=== PATIENT | female | born 1980 | race Caucasian/White ===

== ENCOUNTER 2017-07-26 20:49 | Emergency (ER) | payer SELFPAY ==
[2017-07-26] MEDS ORDERED: diphenhydrAMINE 50 MG/ML VIAL ONE (21:30)
[2017-07-26] MEDS ORDERED: Acetaminophen 500 MG TAB ONE (21:30)
[2017-07-26] MEDS ORDERED: Ketorolac Tromethamine 30 MG/ML VIAL ONE (21:30)
[2017-07-26] MEDS ORDERED: Metoclopramide HCl 10 MG/2 ML VIAL ONE (21:30)
== END 2017-07-26 22:52 | disposition home or self-care (01) ==
LOC: ERS 20:49
DX: G43.909 Migraine, unspecified, not intractable, without status migrainosus (principal); J11.1 Influenza due to unidentified influenza virus with other respiratory manifestations; F31.9 Bipolar disorder, unspecified; F41.9 Anxiety disorder, unspecified; F17.210 Nicotine dependence, cigarettes, uncomplicated
CPT/HCPCS: 96365; 96375; J1200; J1885; J2765

== ENCOUNTER 2017-12-16 17:59 | Emergency (ER) | payer SELFPAY ==
[~2017-12-16 17:59] MED LIST: ISOVUE-370 76%-LOCM 1 ML ONE
[2017-12-16 19:05] LABS: #Eosinphils 0.3 thou/uL (0.0-0.7); #Lymphocytes 2.2 thou/uL (1.20-3.40); #Monocytes 0.7 thou/uL (0.11-0.59); #Neutrophils 2.8 thou/uL (1.40-6.50); %Basophils 0.4 % (0.0-1.0); %Eosinophils 4.5 % (0.0-10.0); %Lymphocytes 36.5 % (21.0-51.0); %Monocytes 12.1 % (0.0-10.0); %Neutrophils 46.5 % (42.0-75.0); Hemoglobin 9.9 g/dL (12.0-16.0); Mean Corpuscular Hemoglobin 23.6 pg (27.0-31.0); Mean Corpuscular Volume 76.2 fl (81.0-99.0); Mean Platelet Volume 6.8 fL (7.4-10.4); Platelet Count 330 thou/uL (130-400); RBC Distribution Width 16.1 % (11.5-14.5); Red Blood Cell (RBC) Count 4.18 mill/uL (4.20-5.40); White Blood Cell (WBC) Count 5.9 thou/uL (4.8-10.8)
[2017-12-16 19:13] LABS: BHCG - Serum Negative (NEGATIVE); Pregs Control Background? CLEAR/WHITE (CLR/WHITE); Pregs Control Bar Appear? YES (CONTROL BAR)
[2017-12-16 19:29] LABS: ALT (SGPT) 19 U/L (8-55); AST (SGOT) 17 U/L (5-34); Albumin 3.3 g/dL (3.5-5.0); Alkaline Phosphatase 88 U/L (40-150); Anion Gap 9 mmol/L (10-20); BUN (Urea Nitrogen) 7 mg/dL (7.0-18.7); Bilirubin, Total 0.5 mg/dL (0.2-1.2); Calc. Creatinine Clearance 0 mL/min (70-130); Calcium 8.5 mg/dL (7.8-10.44); Carbon Dioxide 24 mmol/L (22-29); Chloride 107 mmol/L (98-107); Estimated GFR-MDRD 72; Globulin 4.1 g/dL (2.4-3.5); Glucose 107 mg/dL (70-105); Potassium 3.2 mmol/L (3.5-5.1); Protein, Total 7.4 g/dL (6.0-8.3); Sodium 137 mmol/L (136-145)
[2017-12-16] MEDS ORDERED: Clindamycin 150 MG CAP ONE (19:50)
--- NOTE | 2017-12-16 20:09 | CT ---
CT OF NECK PERFORMED WITH INTRAVENOUS CONTRAST ENHANCEMENT: 12/16/17 HISTORY: Right sided jaw pain. The lung apices are clear. The thyroid gland is normal in appearance. Vocal cord region is unremarkable. There are bilateral ju gular chain lymph nodes present probably reactive that are fairly symmetric. Parapharyngeal spaces an d tonsillar region are unremarkable. The parotid and submandibular glands are normal in appearance. There are mildly prominent submandibul ar lymph nodes present bilaterally. There is edema change within the soft tissues along the right javier e of the mandible. There is evidence of some dental disease with some lucency near the root of one of the molars. This is possibly the etiology of the swelling. There is also evidence of left sided alexandra ibular dental disease. There is no abscess. The visualized sinuses shows some mucosal change in the region of the left middle turbinate. IMPRESSION: Soft tissue edema change along the right side of the mandible possibly related to underlying dental d isease. No signs of abscess. POS: [facility]
[2017-12-16] MEDS ORDERED: Acetaminophen/Codeine 30-300mg Tablet ONE (20:52)
[2017-12-16] MEDS ORDERED: Ketorolac Tromethamine 30 MG/ML VIAL ONE (21:37)
== END 2017-12-16 21:48 | disposition home or self-care (01) ==
LOC: ERS 17:59
DX: K04.7 Periapical abscess without sinus (principal); K02.9 Dental caries, unspecified; K03.81 Cracked tooth; G43.909 Migraine, unspecified, not intractable, without status migrainosus; F41.9 Anxiety disorder, unspecified; F17.210 Nicotine dependence, cigarettes, uncomplicated; F31.9 Bipolar disorder, unspecified
CPT/HCPCS: 36415; 70491; 80053; 84703; 85025; 96361; 96374; J1885

== ENCOUNTER 2018-03-12 03:51 | Observation (INO) | payer SELFPAY ==
[2018-03-12] MEDS ORDERED: Fentanyl 100 MCG/2 ML VIAL ONE ×2 (03:57→04:26)
[2018-03-12] MEDS ORDERED: CEFAZOLIN 1 GM VIAL ONE (03:57)
[2018-03-12] MEDS ORDERED: Adacel (T-DAP) 0.5 ML VIAL ONE (03:59)
[2018-03-12] MEDS ORDERED: CEFAZOLIN/Water 2 GM/20 ML SYRINGE ONE ×2 (03:59→11:49)
[2018-03-12 04:28] LABS: INR-International Normal Ratio 0.9; Prothrombin Time 12.4 SEC (12.0-14.7)
[2018-03-12 04:30] LABS: BHCG - Serum Negative (NEGATIVE); Pregs Control Background? CLEAR/WHITE (CLR/WHITE); Pregs Control Bar Appear? YES (CONTROL BAR)
[2018-03-12 04:34] LABS: Mean Corpuscular HGB CONC 32.4 g/dL (32.0-36.0); Mean Corpuscular Hemoglobin 23.7 pg (27.0-31.0); Mean Corpuscular Volume 73.1 fL (78.0-98.0); Platelet Count 440 thou/uL (130-400); RBC Distribution Width 17.4 % (11.5-14.5); Red Blood Cell (RBC) Count 4.65 mill/uL (4.20-5.40); White Blood Cell (WBC) Count 9.8 thou/uL (4.8-10.8)
[2018-03-12 04:37] LABS: ALT (SGPT) 26 U/L (8-55); AST (SGOT) 24 U/L (5-34); Alcohol Less than 10 mg/dL (Less than 10); Alkaline Phosphatase 96 U/L (40-150); Anion Gap 16 mmol/L (10-20); BUN (Urea Nitrogen) 10 mg/dL (7.0-18.7); Bilirubin, Total 0.3 mg/dL (0.2-1.2); Calc. Creatinine Clearance 0 mL/min (70-130); Calcium 9.4 mg/dL (7.8-10.44); Carbon Dioxide 20 mmol/L (22-29); Chloride 104 mmol/L (98-107); Estimated GFR-MDRD 65; Globulin 4.9 g/dL (2.4-3.5); Glucose 142 mg/dL (70-105); Potassium 3.2 mmol/L (3.5-5.1); Protein, Total 8.9 g/dL (6.0-8.3); Sodium 137 mmol/L (136-145)
[2018-03-12 04:42] LABS: PTT 22.2 SEC (22.9-36.1)
[2018-03-12 05:03] LABS: Anisocytosis SLIGHT = 6-15 cells (100X) (0-5/hpf); Band 1 % (5-11); Eosinophils 3 % (0-10); Lymphocytes 55 % (21-51); MDiff Complete? YES; Microcytosis SLIGHT = 6-15 cells (100X) (0-5/hpf); Monocytes 13 % (0-10); Neutrophil 27 % (42-75)
[2018-03-12] MEDS ORDERED: Dextrose 50% Abboject 50 ML SYRINGE SLOW IVP PRN (05:15)
[2018-03-12] MEDS ORDERED: Sodium Chloride 0.9% 1,000 ML IV SCH (05:15)
[2018-03-12] MEDS ORDERED: Ondansetron ODT 4 MG TAB PO PRN (05:15)
[2018-03-12] MEDS ORDERED: Ondansetron HCl/PF 4 MG/2 ML Vial IVP PRN ×2 (05:15→13:20)
[2018-03-12] MEDS ORDERED: Dextrose 5% in Water 1,000 ML IV PRN (05:15)
[2018-03-12] MEDS ORDERED: Morphine 4 MG/ML VIAL ONE (05:45)
[2018-03-12 06:35] VITALS: BMI 29.5
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
[2018-03-12] MEDS: traMADol HCl 50 MG TAB PO SCH ×3 (08:07→17:41)
[2018-03-12] MEDS: Ketorolac Tromethamine 30 MG/ML VIAL IVP SCH ×2 (08:07→15:26)
[2018-03-12] MEDS: Acetaminophen 500 MG TAB PO SCH ×3 (08:07→17:41)
[2018-03-12] MEDS: traMADol HCl 50 MG TAB PO PRN ×2 (08:08→20:33)
--- NOTE | 2018-03-12 08:54 | RAD ---
RIGHT WRIST 3 VIEWS: Date: 03/12/18 HISTORY: Fractures. COMPARISON: None. FINDINGS: There is a comminuted fracture of the third metacarpal base, interarticular. There is also a fracture of the capitate, likely a fracture of the trapezoid. The capitate fracture extends into the lunocapi ellington articulation. Extensive soft tissue swelling and gas. IMPRESSION: 1. Comminuted intra-articular third metacarpal base fracture. 2. Likely a fracture of the medial margin of the trapezoid. 3. Comminuted fracture of the capitate. 4. Extensive soft tissue gas. POS: [facility]
[2018-03-12] MEDS ORDERED: Neomycin-Polymyxin 1 ML AMP ONE (11:35)
[2018-03-12] MEDS ORDERED: Midazolam HCl 2 mg/2 ml Vial ONE (11:48)
[2018-03-12] MEDS ORDERED: Fentanyl 250 MCG/5 ML VIAL ONE (11:48)
[2018-03-12] MEDS ORDERED: Bupivacaine HCl 0.5%/Epinephrine 1:200,000/PF 30 ml Vial ONE (12:25)
[2018-03-12] MEDS ORDERED: Promethazine HCl 25 MG/ML VIAL SLOW IVP PRN (13:20)
[2018-03-12] MEDS ORDERED: Promethazine HCl 25 MG/ML VIAL IM PRN (13:20)
--- NOTE | 2018-03-12 14:31 | RAD ---
RADIOGRAPH RIGHT HAND 3 VIEWS: Date: 03/12/18 Time: 1245 hours HISTORY: 37-year-old female with right hand fracture. COMPARISON: 03/12/18 at 0345 hours. FINDINGS: These are fluoroscopic spot images obtained with C-arm in the OR, with intrinsically low image resolu tion. Again demonstrated is the severely comminuted proximal metaphysis and proximal diaphysis of the third metacarpal. Two transversely oriented pins have been placed through the mid diaphysis of the t hird metacarpal, and also overlapping the mid diaphyses of the second and fourth metacarpals. IMPRESSION: 1. Acute, traumatic, severely comminuted, closed, fracture with intraarticular component, involving the base of the third metacarpal. 2. Jen wire pin fixation of the third metacarpal to the second and fourth metacarpals. POS: [facility]
[2018-03-12] MEDS ORDERED: PROPOFOL 200 MG/20 ML VIAL ONE (14:52)
[2018-03-12] MEDS ORDERED: Ondansetron HCl/PF 4 MG/2 ML Vial ONE (14:52)
[2018-03-12] MEDS ORDERED: Succinylcholine Chloride 20 MG/ML 10 ml SYRINGE FS ONE (14:52)
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
[2018-03-12] MEDS: Famotidine/PF 20 mg/2ml Vial SLOW IVP SCH ×2 (15:27→20:27)
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
[2018-03-12] MEDS: Cephalexin 250 MG CAP PO SCH ×2 (17:42→20:27)
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
[2018-03-12 23:51] VITALS: BP 110/70; TEMP 98
--- NOTE | 2018-03-14 12:35 | DIS ---
DATE OF ADMISSION: 03/12/2018 DATE OF DISCHARGE: 03/12/2018 CONSULTANTS: Dr. Pedersen, orthopedic surgery. PROCEDURES: Irrigation and debridement, closed reduction and percutaneous pinning of the third and f ourth metacarpal fractures and capitate fractures of the right hand and wrist with Dr. Peedrsen. HOSPITAL COURSE: This is a 37-year-old female who presented as documented in her history and physica l dated on 03/14/2018. She was taken to the operating room with Dr. Pedersen for intervention to her injuries. Postoperatively, the patient did well, was tolerating a diet and pain was controlled. She was discharged on the date of her admission. DISCHARGE DISPOSITION: Home. DISCHARGE CONDITION: Good. PHYSICAL EXAMINATION: As documented in Dr. Alvarenga's note. FOLLOWUP APPOINTMENTS: The patient should follow up with Orthopedic Surgery as directed. She does n ot need to follow up with Trauma services, Dr. Collazo at this time but may call our office with any qu estions. DISCHARGE MEDICATIONS: The patient was provided a prescription by Orthopedic Surgery for [place] 5 one tab q.6 hours p.r.n. for pain and Keflex 500 mg p.o. q.i.d. x2 days. DISCHARGE INSTRUCTIONS: She should keep her dressings clean, dry, and intact. She should wear a sli ng to the right arm when out of bed or walking. This is merely a summary of the patient's hospitalization. For more in depth information, please see her medical record in its entirety.
== END 2018-03-12 21:05 | disposition home or self-care (01) ==
LOC: ERS 03:51 → SURG A 05:19
PROVIDERS: ADMIT Specialist; ATTEND Orthopaedic Surgery
PROC: 0PSP34Z Reposition Right Metacarpal with Internal Fixation Device, Percutaneous Approach (ICD-10-PCS; principal; 2018-03-12)
PROC: 0PSM34Z Reposition Right Carpal with Internal Fixation Device, Percutaneous Approach (ICD-10-PCS; 2018-03-12)
DX: S62.312A Displaced fracture of base of third metacarpal bone, right hand, initial encounter for closed fracture (principal); S62.315A Displaced fracture of base of fourth metacarpal bone, left hand, initial encounter for closed fracture; S62.131A Displaced fracture of capitate [os magnum] bone, right wrist, initial encounter for closed fracture; J45.909 Unspecified asthma, uncomplicated; F17.200 Nicotine dependence, unspecified, uncomplicated; W34.00XA Accidental discharge from unspecified firearms or gun, initial encounter
CPT/HCPCS: 76001; 80053; 80307; 84703; 85025; 85610; 85730; 86850; 86900; 86901; 90471; 90715; 93005; 96361; 96374; 96375; 96376; 99406; C1713; G0378; J0670; J0690; J1885; J2250; J2270; J2405; J2704; J3010; S0028

== ENCOUNTER 2018-03-14 11:08 | Emergency (ER) | payer SELFPAY ==
[2018-03-14] MEDS ORDERED: Ibuprofen 800 MG TAB ONE (13:04)
== END 2018-03-14 13:16 | disposition home or self-care (01) ==
LOC: ERS 11:08
DX: Z48.01 Encounter for change or removal of surgical wound dressing (principal); G43.909 Migraine, unspecified, not intractable, without status migrainosus; J45.909 Unspecified asthma, uncomplicated; F41.9 Anxiety disorder, unspecified; F31.9 Bipolar disorder, unspecified; F17.210 Nicotine dependence, cigarettes, uncomplicated
CPT/HCPCS: 29125; 99406

== ENCOUNTER 2020-11-13 16:10 | Emergency (ER) | payer OTHER, SELFPAY ==
[2020-11-13 17:58] LABS: Hemoglobin 10.7 g/dL (12.0-16.0); Mean Corpuscular HGB CONC 31.2 g/dL (32.0-36.0); Mean Corpuscular Hemoglobin 23.2 pg (27.0-31.0); Mean Corpuscular Volume 74.5 fL (78.0-98.0); Mean Platelet Volume 7.7 fL (7.4-10.4); Platelet Count 353 thou/uL (130-400); RBC Distribution Width 17.5 % (11.5-14.5); Red Blood Cell (RBC) Count 4.61 mill/uL (4.20-5.40); White Blood Cell (WBC) Count 5.5 thou/uL (4.8-10.8)
[2020-11-13 18:18] LABS: ALT (SGPT) 57 U/L (8-55); AST (SGOT) 33 U/L (5-34); Albumin 3.5 g/dL (3.5-5.0); Alkaline Phosphatase 110 U/L (40-110); Anion Gap 7 mmol/L (10-20); BUN (Urea Nitrogen) 15 mg/dL (7.0-18.7); Bilirubin, Total 0.2 mg/dL (0.2-1.2); Calc. Creatinine Clearance 0 mL/min (70-130); Calcium 8.9 mg/dL (7.8-10.44); Carbon Dioxide 29 mmol/L (22-29); Chloride 106 mmol/L (98-107); Globulin 4.5 g/dL (2.4-3.5); Glucose 94 mg/dL (70-105); Potassium 4.4 mmol/L (3.5-5.1); Sodium 138 mmol/L (136-145)
[2020-11-13 18:22] LABS: #Eosinphils 0.1 thou/uL (0.0-0.7); #Lymphocytes 2.2 thou/uL (1.20-3.40); #Monocytes 0.6 thou/uL (0.11-0.59); #Neutrophils 2.6 thou/uL (1.40-6.50); %Basophils 0.5 % (0.0-1.0); %Lymphocytes 40.1 % (21.0-51.0); %Monocytes 10.8 % (0.0-10.0); %Neutrophils 46.6 % (42.0-75.0)
[2020-11-13 18:25] LABS: Anisocytosis SLIGHT = 6-15 cells (100X) (0-5/hpf); Hypochromia SLIGHT = 6-15 cells (100X) (0-5/hpf); MDiff Complete? YES; Microcytosis SLIGHT = 6-15 cells (100X) (0-5/hpf); Platelet Morphology Comment Appears Adequate; Polychromasia SLIGHT = 2-3 cells (100X) (0-2/hpf)
[2020-11-13] MEDS ORDERED: Ketorolac Tromethamine 30 MG/ML VIAL ONE (18:52)
[2020-11-13 19:03] LABS: Bacteria/HPF None Seen HPF (None Seen); Bilirubin Negative (Negative); Blood, Urine 1+ (Negative); Clarity Clear (Clear); Glucose, Urine (Dipstick) Normal (Negative); Ketone, Urine Negative (Negative); Leukocyte Negative Leu/uL (Negative); Nitrite Negative (Negative); Protein, Urine (Dipstick) Negative (Neg-Trace); RBC/HPF 0-3 HPF (0-3); Specific Gravity, Urine 1.025 (1.002-1.036); Squamous Epithelial 0-3 HPF (0-3); Urobilinogen Normal mg/dL (Less than 2); WBC/HPF 0-3 HPF (0-3); pH, Urine 5.5 (5.0-9.0)
[2020-11-13 19:06] LABS: Pregnancy Test - Urine (BHCG) Negative (Negative); Pregu Control Background? CLEAR/WHITE (CLR/WHITE); Pregu Control Bar Appear? YES (CONTROL BAR); Specific Gravity 1.025 (1.002-1.036)
== END 2020-11-13 20:13 | disposition home or self-care (01) ==
LOC: ERS 16:10
DX: S06.0X9A Concussion with loss of consciousness of unspecified duration, initial encounter (principal); S16.1XXA Strain of muscle, fascia and tendon at neck level, initial encounter; V49.40XA Driver injured in collision with unspecified motor vehicles in traffic accident, initial encounter; G43.909 Migraine, unspecified, not intractable, without status migrainosus; J45.909 Unspecified asthma, uncomplicated; F17.210 Nicotine dependence, cigarettes, uncomplicated
CPT/HCPCS: 36415; 70450; 71045; 72125; 80053; 81003; 81015; 81025; 85025; 93005; 94760; 96372; J1885